=== PATIENT | male | born 2005 | race Caucasian/White ===

== ENCOUNTER 2024-03-29 07:37 | Day surgery (SDC) | payer OTHER ==
[~2024-03-29] VITALS: Ht 177.8 cm; Wt 76.3 kg
[~2024-03-29 07:37] MED LIST: LIDOCAINE 2% 100MG/5ML SDV (FOR ANES.) As Ordered ONE; MIDAZOLAM INJ 2MG/2ML VIAL As Ordered ONE; ROCURONIUM BROMIDE 50MG/5ML VIAL As Ordered ONE; dexmedeTOMIDine (4MCG/ML)200MCG/50ML BTL (PRECEDEX) As Ordered ONE; fentaNYL 100 MCG/2 ML INJECTION As Ordered ONE
[2024-03-29] MEDS: LR 1,000 ML IV SCH (08:39)
[2024-03-29] MEDS ORDERED: propofoL 200 MG/20 ML VIAL As Ordered ONE (09:27)
[2024-03-29] MEDS ORDERED: HYDROmorphone HCL 2MG/ML 1ML VIAL As Ordered ONE (09:30)
[2024-03-29] MEDS ORDERED: ONDANSETRON 4MG 2ML VIAL As Ordered ONE (09:31)
[2024-03-29] MEDS ORDERED: ACETAMINOPHEN 1000MG 100ML IV BAG As Ordered ONE (09:32)
[2024-03-29] MEDS ORDERED: SUGAMMADEX SODIUM 500 MG/5 ML VIAL (BRIDION) As Ordered ONE (09:39)
[2024-03-29] MEDS ORDERED: oxyCODONE 5MG TAB PO PRN (09:50)
[2024-03-29] MEDS ORDERED: LR 1,000 ML IV SCH ×2 (09:50→10:45)
[2024-03-29] MEDS ORDERED: fentaNYL 100 MCG/2 ML INJECTION IV PRN (09:50)
[2024-03-29] MEDS: HYDROMORPHONE HCL 0.5 MG/ 0.5 ML SYRINGE IV PRN (10:40)
[2024-03-29] MEDS: ONDANSETRON 4MG 2ML VIAL IV PRN (10:42)
[2024-03-29] MEDS: HYDROcodone/APAP LIQUID 7.5-325MG 15ML UDC (LORTAB ELIXIR) PO PRN (10:58)
[2024-03-29 11:06] VITALS: BP 116/68; TEMP 98.2; O2SAT 99
== END 2024-03-29 11:40 | disposition home or self-care (01) ==
LOC: M SDC 07:37
PROVIDERS: ATTEND Otolaryngology
DX: J35.03 Chronic tonsillitis and adenoiditis (principal)
CPT/HCPCS: 42821; 88302; J0131; J0665; J1100; J1170; J2250; J2405; J3010

== ENCOUNTER 2024-04-03 21:47 | Emergency (ER) | payer OTHER ==
[~2024-04-03] VITALS: Ht 180.3 cm; Wt 72.4 kg
[2024-04-04] MEDS: HYDROcodone/APAP LIQUID 7.5-325MG 15ML UDC (LORTAB ELIXIR) PO ONE (01:23)
[2024-04-04] MEDS ORDERED: HYDR1SOL22 PO ×3 (01:27→13:07)
[2024-04-04 01:34] VITALS: BP 114/72; TEMP 98.7; O2SAT 99
[2024-04-04] MEDS ORDERED: NASASPR (13:07)
[2024-04-04] MEDS ORDERED: MEDR4PAK PO (13:07)
== END 2024-04-04 01:36 | disposition home or self-care (01) ==
LOC: M ED 21:47
DX: J95.830 Postprocedural hemorrhage of a respiratory system organ or structure following a respiratory system procedure (principal); Z90.89 Acquired absence of other organs; Z79.83 Long term (current) use of bisphosphonates; Z79.899 Other long term (current) drug therapy

== ENCOUNTER 2024-04-04 02:32 | Inpatient (IN) | payer OTHER ==
[~2024-04-04] VITALS: Ht 175.3 cm; Wt 72.5 kg
[~2024-04-04 02:32] MED LIST changes: +HYDR1SOL22 PO; -LIDOCAINE 2% 100MG/5ML SDV (FOR ANES.) As Ordered ONE; -MIDAZOLAM INJ 2MG/2ML VIAL As Ordered ONE; -ROCURONIUM BROMIDE 50MG/5ML VIAL As Ordered ONE; -dexmedeTOMIDine (4MCG/ML)200MCG/50ML BTL (PRECEDEX) As Ordered ONE; -fentaNYL 100 MCG/2 ML INJECTION As Ordered ONE
[2024-04-04 03:12] LABS: BASO % 0.4 % (0.0-1.0); EOS # 0.1 10^3/uL (0.0-0.5); EOS % 0.6 % (0.0-3.0); HEMATOCRIT 46.1 % (42.0-52.0); HEMOGLOBIN 16.4 g/dl (13.5-17.5); LYMPH # 1.7 10^3/uL (1.5-5.0); LYMPH % 20.6 % (24.0-44.0); MEAN CORPUSCULAR HEMOGLOBIN 30.4 pg (27.0-33.0); MEAN CORPUSCULAR HGB CONC 35.6 g/dl (32.0-36.5); MEAN CORPUSCULAR VOLUME 85.4 fl (80.0-96.0); MONO # 0.8 10^3/uL (0.0-0.8); MONO % 9.5 % (2.0-8.0); NEUTROPHILS # 5.8 10^3/uL (1.5-8.5); NEUTROPHILS % 68.7 % (36.0-66.0); PLATELET COUNT, AUTOMATED 289 10^3/uL (150-450); WHITE BLOOD COUNT 8.4 10^3/uL (4.0-10.0)
[2024-04-04 03:37] LABS: BLOOD UREA NITROGEN 11 MG/DL (9-23); CALCIUM LEVEL 9.5 MG/DL (8.5-10.1); CARBON DIOXIDE LEVEL 29 MMOL/L (20-31); CHLORIDE LEVEL 104 MMOL/L (98-107); CREATININE FOR GFR 0.89 MG/DL (0.70-1.30); GLUCOSE, FASTING 105 MG/DL (60-100); SODIUM LEVEL 139 MMOL/L (136-145)
[2024-04-04] MEDS ORDERED: ACETAMINOPHEN 325MG/10.15ML UDC PO PRN (03:50)
[2024-04-04] MEDS: LR 1,000 ML IV SCH ×2 (04:20→10:55)
[2024-04-04] MEDS ORDERED: HYDR1SOL22 PO ×2 (04:55→13:07)
[2024-04-04] MEDS ORDERED: HOME MED LIST COMPLETE! XX SCH (05:00)
[2024-04-04 05:24] VITALS: BP 131/79; TEMP 97.3; O2SAT 96
[2024-04-04] MEDS: IBUPROFEN 100MG 5ML SUSP UDC DYE FREE PO PRN (05:49)
[2024-04-04] MEDS: CLINDAMYCIN 900MG/50ML PREMIX BAG As Ordered ONE (09:01)
[2024-04-04] MEDS: LIDOCAINE W/EPINEPHRINE 1% 20ML VIAL As Ordered ONE (09:01)
[2024-04-04 09:05] LABS: HEMATOCRIT 45.5 % (42.0-52.0); HEMOGLOBIN 16.2 g/dl (13.5-17.5); MEAN CORPUSCULAR HEMOGLOBIN 30.2 pg (27.0-33.0); MEAN CORPUSCULAR HGB CONC 35.6 g/dl (32.0-36.5); MEAN CORPUSCULAR VOLUME 84.9 fl (80.0-96.0); PLATELET COUNT, AUTOMATED 298 10^3/uL (150-450); RED BLOOD COUNT 5.36 10^6/uL (4.30-6.10)
[2024-04-04 09:20] LABS: INR 1.12; PARTIAL THROMBOPLASTIN TIME 33.7 SECONDS (24.8-34.2)
[2024-04-04 09:26] LABS: ALKALINE PHOSPHATASE 42 U/L (46-116); ALT/SGPT 26 U/L (7.0-40); AST/SGOT 11 U/L (<34); BILIRUBIN,TOTAL 0.6 MG/DL (0.3-1.2); BLOOD UREA NITROGEN 14 MG/DL (9-23); CALCIUM LEVEL 9.7 MG/DL (8.5-10.1); CARBON DIOXIDE LEVEL 28 MMOL/L (20-31); CHLORIDE LEVEL 105 MMOL/L (98-107); CREATININE FOR GFR 0.86 MG/DL (0.70-1.30); GLUCOSE, FASTING 91 MG/DL (60-100); POTASSIUM SERUM 3.9 MMOL/L (3.5-5.1); SODIUM LEVEL 139 MMOL/L (136-145); TOTAL PROTEIN 7.2 G/DL (5.7-8.2)
[2024-04-04] MEDS ORDERED: LIDOCAINE 2% 100MG/5ML SDV (FOR ANES.) As Ordered ONE (09:45)
[2024-04-04] MEDS ORDERED: fentaNYL 100 MCG/2 ML INJECTION As Ordered ONE (09:45)
[2024-04-04] MEDS ORDERED: SUCCINYLCHOLINE 100MG/5ML SYRINGE As Ordered ONE (09:45)
[2024-04-04] MEDS ORDERED: propofoL 200 MG/20 ML VIAL As Ordered ONE (09:45)
[2024-04-04] MEDS ORDERED: METOCLOPRAMIDE INJ 10MG/2ML VIAL As Ordered ONE (09:45)
[2024-04-04] MEDS ORDERED: ROCURONIUM BROMIDE 50MG/5ML VIAL As Ordered ONE (09:45)
[2024-04-04] MEDS ORDERED: dexmedeTOMIDine (4MCG/ML)200MCG/50ML BTL (PRECEDEX) As Ordered ONE (09:45)
[2024-04-04] MEDS ORDERED: ONDANSETRON 4MG 2ML VIAL As Ordered ONE (09:45)
[2024-04-04] MEDS ORDERED: MIDAZOLAM INJ 2MG/2ML VIAL As Ordered ONE (09:45)
[2024-04-04] MEDS ORDERED: ACETAMINOPHEN 1000MG 100ML IV BAG As Ordered ONE (09:45)
[2024-04-04] MEDS: OXYMETAZOLINE 0.05% NASAL SPRAY (AFRIN) As Ordered ONE (09:52)
[2024-04-04] MEDS ORDERED: ONDANSETRON 4MG 2ML VIAL IV PRN (10:55)
[2024-04-04] MEDS ORDERED: MEPERIDINE 25 MG/ML 1ML VIAL IV PRN (10:55)
[2024-04-04] MEDS ORDERED: oxyCODONE 5MG TAB PO PRN (10:55)
[2024-04-04] MEDS: fentaNYL 100 MCG/2 ML INJECTION IV PRN (11:05)
[2024-04-04] MEDS: HYDROMORPHONE HCL 0.5 MG/ 0.5 ML SYRINGE IV PRN (11:25)
[2024-04-04 12:15] VITALS: BP 130/84; TEMP 97.3; O2SAT 94
[2024-04-04 12:45] VITALS: BP 142/80; TEMP 97.9; O2SAT 95
[2024-04-04] MEDS ORDERED: NASASPR (13:07)
[2024-04-04] MEDS ORDERED: MEDR4PAK PO (13:07)
[2024-04-04 13:45] VITALS: BP 112/62; TEMP 97.7; O2SAT 94
[2024-04-04 14:45] VITALS: BP 141/94; TEMP 97.9; O2SAT 96
== END 2024-04-04 17:10 | disposition home or self-care (01) | DRG 909 ==
LOC: M ED 02:32 → M ED INP 02:33 → M MS5PR 05:23 → OBSVTOIN 14:59
PROVIDERS: ADMIT Family Medicine; ATTEND Internal Medicine
PROC: 0W337ZZ Control Bleeding in Oral Cavity and Throat, Via Natural or Artificial Opening (ICD-10-PCS; principal; 2024-04-04 09:00)
DX: J95.831 Postprocedural hemorrhage of a respiratory system organ or structure following other procedure (principal)